=== PATIENT | female | born 1965 ===

== ENCOUNTER 2023-12-09 09:33 | Outpatient (AMB) | payer OTHER, SELFPAY ==
--- NOTE | 2023-12-09 09:52 | A.OFFPC_ITS ---
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 ?? Prior PCP:?Dr Hernandez Last office visit/CPE:? > 1 yr Acute issue(s):? Sinus problems & Deviated Septum. Current Sinus pressure. Uses Nasal wash. Tylenol. Zyrtec. Flonase. Seasonal symptoms. BP high today. Denies h/o htn. ?? PMHx:? Benign Heart Murmur. SurgHx:?R oopherectomy (cyst), Appendix. GB. Lap Band & then removal. FHx:? Mom: HTN, DM, Asthma. Dad: HTN, Asthma, Prostate CA. Uncle: Colon CA. SocHx:? Nonsmoker, EtOH None. No drugs HPI Comments History of Present Illness Details Documentation assistance for Tobias Ramirez MD, was provided by Mark Moran,? Brake Repair Mechanic on 12/09/2023 at 10:38 AM [facility]. Catia, Dr. Ramirez, have read, observed, and verified documentation. 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 1. Little interest or pleasure in doing things: not at all 2. Feeling down, depressed, or hopeless: not at all 3. Trouble falling or staying asleep, or sleeping too much: not at all 4. Feeling tired or having little energy: not at all 5. Poor appetite or overeating: not at all 6. Feeling bad about yourself - or that you are a failure or have let yourself or your family down: not at all 7. Trouble concentrating on things, such as reading the newspaper or watching television: not at all 8. Moving or speaking so slowly that other people could have noticed. Or the opposite - being so fidgety or restless that you have been moving around a lot more than usual: not at all 9. Thoughts that you would be better off or of hurting yourself in some way: not at all Total score: 0 Depression Screening Interpretation: Negative Depression Screening Done: Yes 73847 - PHQ-9 Billing: Yes Source: Developed by Drs. Napoleon Borges, Sandrita Betancourt, Floyd Verma and colleagues, with an educational oumar from [employer]. Thrive Questionnaire Date Thrive assessed: 12/09/23 I am a: Patient What is your living situation today?: I have a steady place to live Within the past 12 months, did the food you bought not last and you didn't have the money to get more?: Never true Within the past 12 months, did you worry whether your food would run out before you got money to buy more?: Never true Do you have trouble paying for medicines?: No Do you have trouble getting transportation to medical appointments?: No Do you have trouble paying your heating and electricity bill?: No Do you have trouble taking care of your child, family member or friend?: No Do you have trouble with day-to-day activities such as bathing, preparing meals, shopping, managing finances, etc.?: No Are you currently unemployed and looking for a job?: No Are you interested in more education?: No Please select the resources that you would like help with: None Currently or been in a relationship where the following occur: No concerns reported THRIVE Score: 0 AUDIT C Alcohol Use Questionnaire (AUDIT-C) 1. How often do you have a drink containing alcohol?: Never 3. How often do you have six or more drinks on one occasion?: Never Total Score: 0 Score Reviewed/Action Taken: Yes ALBINA-7 AMB Questionnaire ALBINA-7 Date ALBINA - 7 assessed: 12/09/23 Feeling nervous, anxious, or on edge: 0 = Not at all Not being able to stop or control worryin = Not at all Worrying too much about different things: 0 = Not at all Trouble relaxin = Not at all Being so restless that it is hard to sit still: 0 = Not at all Becoming easily annoyed or irritable: 0 = Not at all Feeling afraid as if something awful might happen: 0 = Not at all Total ALBINA-7 score (0-4 normal; 5-9 mild; 10-14 moderate; 15-21 severe): 0 Source: Developed by Drs. Napoleon Borges, Sandrita Betancourt, Floyd Verma and colleagues, with an educational oumar from [employer]. ALBINA-7 Assessment Billing ALBINA-7 Assessment Tool: ALBINA-7 Assessment 76901 Review of Systems Const Denies chills, Denies fatigue, Denies fever(s), Denies headache(s) and Denies weakness ENT Denies dizziness, Denies headache(s), Reports nasal congestion and Reports sinus pressure Card Denies chest pain, Denies lightheadedness, Denies dyspnea and Denies other (Palpitations) Resp Denies cough, Denies dyspnea, Denies wheezing and Denies other ( shortness of breath) Musc Denies numbness and Denies tingling Neuro Denies dizziness, Denies headache(s), Denies numbness, Denies tingling, Denies paresthesias and Denies weakness Psych Denies anxiety and Denies depression Endo Denies fatigue Aller/Immun Denies wheezing Physical exam (Primary Care) Vital Signs: Last Vital Signs Temp 97.2 F 12/09/23 09:57 Pulse 65 12/09/23 09:57 Resp 12 12/09/23 09:57 BP 151/90 H 12/09/23 09:57 Pulse Ox 96 12/09/23 09:57 Oxygen Delivery Method Room Air 12/09/23 09:57 BMI result Body Mass Index 58.3 Tobacco/Smoking Status: Tobacco use Status Tobacco use date assessed 12/09/23 12/09/23 10:02 Patient Tobacco Use Status Never used Tobacco 12/09/23 10:02 e-Cigarette/Vaping Use Never Used 12/09/23 10:02 PHQ-9: PHQ-9 Score PHQ-9: Total score 0 12/09/23 10:34 Depression Screening Interpretation: Negative Thrive Assessment: Date of Thrive Assessment Date Thrive assessed 12/09/23 12/09/23 10:02 Currently or been in a relationship where the following occur: No concerns reported Const General: no acute distress and well developed Nutritional Appearance: obese morbidly obese Orientation/consciousness: patient oriented x3 HENMT Head: Yes normocephalic and Yes atraumatic Eyes General: appearance normal, both eyes and all related structures Pupils: Equal, round and reactive pupils present EOM: EOMs intact bilaterally Resp Effort & Inspection: normal respiratory effort Auscultation: clear to auscultation bilaterally Cardio Rate: regular rate Rhythm: regular rhythm Heart sounds: S1 normal heart sound present, S2 normal heart sound present, no gallops, Murmur heart sound present (Faint) and no rubs Neuro General: patient oriented x3 and gait normal Cranial nerves: Yes Equal, round and reactive pupils present Psych Affect: normal affect Assessment and Plan Assessment & Plan (1) Sinus congestion: Code(s): R09.81 - Nasal congestion Plan: Seasonal?symptoms?of?sinus?congestion. Already?taking?an oral?daytime?antihistamine?and?using?nasal?rinses History?of?deviated?septum?as?well.??No?evidence?of?sinus?infection?today. Will?give?her?a?script?for?Azelastine and?she?can?continue?nasal?rinses?and?cetirizine. Will?refer?her?to?ENT?as?she?had?been?followed?by?an?ENT?previously?and?can?cont inue?workup. (2) Deviated septum: Code(s): J34.2 - Deviated nasal septum Plan: As?above Referred?to?ENT (3) Elevated blood pressure reading: Code(s): R03.0 - Elevated blood-pressure reading, without diagnosis of hypertension Plan: Blood?pressure?is?elevated?but?patient?says?it?is?normally?okay.??She?denies?any ?prior?diagnosis?of?hypertension?though?she?does?have?a?family?history? of?hypertension. This?may?be?due?to?her?nasal?congestion Will?continue?to?monitor?blood?pressure (4) Heart murmur: Code(s): R01.1 - Cardiac murmur, unspecified Plan: 2/6 systolic?murmur?over?aortic?region She?notes?this?has?been?worked?up?and?is?benign (5) Allergies: Code(s): T78.40XA - Allergy, unspecified, initial encounter Plan: Continue?oral?daytime?antihistamine Trial Azelastine (6) Laboratory exam ordered as part of routine general medical examination: Code(s): Z00.00 - Encounter for general adult medical examination without abnormal findings Plan: Check?lab Orders: Orders Comprehensive Jerome. Panel Fast Today Z00.00 - Encounter for general adult medical examination without abnormal findings TSH reflex Free T4 Today Z00.00 - Encounter for general adult medical examination without abnormal findings Lipid Panel Today Z00.00 - Encounter for general adult medical examination without abnormal findings Microalbumin, Random (w Creat) Today I10 - Essential (primary) hypertension UA and rflx microscopic Today Z00.00 - Encounter for general adult medical examination without abnormal findings Referrals Ear/Nose/Throat Referral J34.2 - Deviated nasal septum, R09.81 - Nasal congestion Medications: New azelastine administer into each nostril 1 spray intranasal BID 300 days 30 mL 2RF Coding Level of Care Code New Pt Level 3 (62975) Diagnoses Sinus congestion R09.81 Deviated septum J34.2 Elevated blood pressure reading R03.0 Heart murmur R01.1 Allergies T78.40XA Laboratory exam ordered as part of routine general medical examination Z00.00 Additional Codes ALBINA-7 Assessment Billing - ALBINA-7 Assessment Tool: ALBINA-7 Assessment [id number] ([id number])
[2023-12-09 09:57] VITALS: BP 151/90; PULSE 65; RESP 12; TEMP 36.2; O2SAT 96; BMI 58.3
[2023-12-09 10:36] VITALS: BP 141/82
== END 2023-12-09 10:52 | disposition home or self-care (01) ==
PROVIDERS: PCP Family Medicine; Visit Provider Family Medicine
DX: R09.81 Nasal congestion (principal); J34.2 Deviated nasal septum; R03.0 Elevated blood-pressure reading, without diagnosis of hypertension; R01.1 Cardiac murmur, unspecified; T78.40XA Allergy, unspecified, initial encounter
CPT/HCPCS: 99203